=== PATIENT | female | born 1995 | race African-American/Black ===

== ENCOUNTER 2019-05-05 02:23 | Emergency (ER) | payer MEDICAID ==
[~2019-05-05] VITALS: Ht 180.3 cm; Wt 132.0 kg
[2019-05-05] MEDS: IBUPROFEN 800MG TABLET PO ONE (06:48)
[2019-05-05 07:00] VITALS: BP 134/90
== END 2019-05-05 08:10 | disposition home or self-care (01) ==
LOC: ER 02:23
DX: H60.593 Other noninfective acute otitis externa, bilateral (principal); F12.10 Cannabis abuse, uncomplicated
CPT/HCPCS: 99283